=== PATIENT | male | born 1965 | race Caucasian/White ===

== ENCOUNTER 2023-02-05 06:15 | Day surgery (SDC) | payer OTHER ==
[2023-02-03 15:59] VITALS: BMI 31.9
[2023-02-05] MEDS ORDERED: BUPIVACAINE HCL/EPINEPHRINE/PF 30 ML VIAL IJ ONE (07:16)
[2023-02-05] MEDS ORDERED: DEXAMETHASONE SOD PHOSPHATE 4 MG/1 ML VIAL ONE ×2 (07:25→07:40)
[2023-02-05] MEDS ORDERED: LIDOCAINE HCL/PF 2% SDV 5ML VIAL ONE (07:25)
[2023-02-05] MEDS ORDERED: LIDOCAINE HCL 2% 100 MG/5 ML DISP.SYRIN ONE (07:25)
[2023-02-05] MEDS ORDERED: ONDANSETRON 4 MG/2 ML VIAL ONE ×2 (07:25→07:40)
[2023-02-05] MEDS ORDERED: KETOROLAC TROMETHAMINE 30 MG/1 ML VIAL ONE ×2 (07:25→07:40)
[2023-02-05] MEDS ORDERED: PROPOFOL 20 ML ONE ×2 (07:25→07:53)
[2023-02-05] MEDS ORDERED: ceFAZolin SODIUM 1 GM VIAL ONE ×2 (07:25→07:40)
[2023-02-05] MEDS ORDERED: MIDAZOLAM HCL 2 MG/2 ML SINGLE DOSE VIAL ONE (07:26)
[2023-02-05] MEDS ORDERED: GLYCOPYRROLATE 0.2 MG/1 ML VIAL ONE (07:55)
[2023-02-05] MEDS ORDERED: SEVOFLURANE 250 ML BTL ONE (08:21)
[2023-02-05] MEDS ORDERED: PROMETHAZINE HCL 25 MG/1 ML VIAL IVPB PRN (09:18)
[2023-02-05] MEDS ORDERED: ONDANSETRON 4 MG/2 ML VIAL IVPUSH PRN (09:18)
[2023-02-05] MEDS ORDERED: oxyCODONE HCL 5 MG TABLET PO PRN ×2 (09:18)
[2023-02-05] MEDS ORDERED: ACETAMINOPHEN 1000 MG/100 ML BAG IVPB ONE (09:21)
[2023-02-05 10:07] VITALS: TEMP 97.8
[2023-02-05] MEDS ORDERED: ACETAMINOPHEN INJECTION 100 ML IVPB ONE (10:08)
[2023-02-05 10:46] VITALS: BP 128/71; PULSE 62; RESP 18
== END 2023-02-05 10:48 | disposition home or self-care (01) ==
LOC: FASU 06:15
PROVIDERS: ATTEND Orthopaedic Surgery
PROC: 0LS20ZZ Reposition Left Shoulder Tendon, Open Approach (ICD-10-PCS; principal; 2023-02-05 07:54)
DX: S46.212A Strain of muscle, fascia and tendon of other parts of biceps, left arm, initial encounter (principal); X58.XXXA Exposure to other specified factors, initial encounter; Y93.9 Activity, unspecified; Y92.9 Unspecified place or not applicable
CPT/HCPCS: 73070-TC-LT-FY; 94760